=== PATIENT | male | born 1990 | race Hispanic/Latino ===

== ENCOUNTER 2025-01-05 09:58 | Emergency (ER) | payer OTHER ==
[~2025-01-05] VITALS: Ht 180.3 cm; Wt 92.4 kg
[2025-01-05] MEDS ORDERED: MORPHINE SULFATE 4 MG/ML VIAL IV ONE (10:30)
[2025-01-05] MEDS ORDERED: KETOROLAC TROMETHAMINE 30 MG/ML VIAL IV ONE (10:30)
[2025-01-05 10:31] LABS: BLOOD/HGB, URINE LARGE (Negative); KETONE, URINE TRACE (Negative); LEUK ESTERASE, URINE NEGATIVE (negative); NITRITE, URINE NEGATIVE (negative)
[2025-01-05 10:38] LABS: EPITHELIAL CELLS, URINE SQUAMOUS 1+ /lpf (0-1+)
[2025-01-05 10:39] LABS: BACTERIA, URINE NONE SEEN /hpf (negative); CASTS, URINE NONE SEEN \\lpf; CRYSTALS, URINE NONE SEEN (0-1+); REFLEX CULTURE, URINE No (No)
[2025-01-05 10:39] LABS: BASOPHILS 0.2 % (0.2-1.2); EOSINOPHILS 0.8 % (0.8-7.0); LYMPHOCYTES 21.6 % (21.8-53.1); MCH 30.6 PG (25.7-32.2); MCHC 34.8 g/dL (32.3-36.5); MCV 87.7 fL (79.0-92.2); MONOCYTES 6.4 % (5.3-12.2); NEUTROPHILS 70.8 % (34.0-67.9); RBC 5.27 M/uL (4.63-6.08)
[2025-01-05 10:54] LABS: ALT (SGPT) 37.0 U/L (14-59); AST (SGOT) 14.0 U/L (15-37); GLOMERULAR FILTRATION RATE,EST 80.0 mL/min (>60); PROTEIN, TOTAL 7.6 g/dL (6.4-8.2); UREA NITROGEN 20.0 mg/dL (7-18)
[2025-01-05] MEDS ORDERED: DOVATO 50-3001 EACH PO (11:05)
[2025-01-05] MEDS ORDERED: IBUPROFEN600 MG PO (12:02)
[2025-01-05] MEDS ORDERED: HYDROCODON-ACE1 EA10 PO (12:02)
[2025-01-05] MEDS ORDERED: ONDANSETRON ODT4 MG PO (12:02)
[2025-01-05 12:21] VITALS: BP 119/83
== END 2025-01-05 12:20 | disposition home or self-care (01) ==
LOC: ED 09:58
PROVIDERS: Emergency Medicine
DX: N13.2 Hydronephrosis with renal and ureteral calculous obstruction (principal); Z21 Asymptomatic human immunodeficiency virus [HIV] infection status; Z79.899 Other long term (current) drug therapy
CPT/HCPCS: 36415; 74176; 80053; 81001; 83690; 85025; 96374; 96375; 99284-25; J1885; J2270; J2405